=== PATIENT | female | born 1945 ===

== ENCOUNTER 2022-03-24 04:26 | Outpatient (CLI) | payer MEDICARE | END 2022-03-24 04:27 | disposition EMS.NT | LOC: EMS 04:26 | DX: Z03.89 Encounter for observation for other suspected diseases and conditions ruled out (principal) ==

== ENCOUNTER 2022-03-24 16:03 | Outpatient (CLI) | payer MEDICARE | END 2022-03-24 16:04 | disposition EMS.NT | LOC: EMS 16:03 | DX: Z03.89 Encounter for observation for other suspected diseases and conditions ruled out (principal) ==

== ENCOUNTER 2022-03-24 22:44 | Outpatient (CLI) | payer MEDICARE | END 2022-03-24 22:45 | disposition EMS.NT | LOC: EMS 22:44 | DX: Z03.89 Encounter for observation for other suspected diseases and conditions ruled out (principal) ==